=== PATIENT | male | born 1930 | race Caucasian/White ===

== ENCOUNTER 2019-06-26 17:29 | Outpatient (CLI) | payer MEDICARE, OTHER | END 2019-06-26 17:30 | disposition critical access hospital (66) | LOC: EMS 17:29 | PROVIDERS: ATTEND Surgery | DX: T63.461A Toxic effect of venom of wasps, accidental (unintentional), initial encounter (principal); R68.89 Other general symptoms and signs | CPT/HCPCS: A0425; A0427 ==

== ENCOUNTER 2019-06-26 18:09 | Emergency (ER) | payer MEDICARE, OTHER ==
--- NOTE | 2019-06-26 18:16 | ED Physician Documentation ---
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 He was stung at around 1600 by what he thinks is a yellow jacket on His right hand, he had a small amount of localized swelling over his ring finger, and over the next hour he began developing some slight feeling of pressure in his head. No confusion, vision change. He denies any difficulty breathing, denies any rash, no chest pain. He states that he has had an anaphylactic reaction once before to honeybee, but never to yellowjacket. This does not feel like his past anaphylactic reaction to him. He otherwise feels well. He received 50 mg of Benadryl in route by EMS. Review of Systems Constitutional: denies: Fever Eyes: denies: Loss of vision Cardiac: denies: Chest pain / pressure Respiratory: denies: Dyspnea GI: denies: Abdominal Pain, Nausea, Vomiting Skin: reports: Bite / sting Neurologic: denies: Generalized weakness Immunocompromised: denies: Immunocompromised PD PAST MEDICAL HISTORY - Present Medications Home Medications: Ambulatory Orders Medication Instructions Recorded Confirmed Lisinopril 06/26/19 - Allergies Allergies/Adverse Reactions: Allergies Allergy/AdvReac Type Severity Reaction Status Date / Time No Known Drug Allergies Allergy Verified 06/26/19 18:32 PD ED PE NORMAL - Vitals Vital signs reviewed: Yes - General General: Alert and oriented X 3, No acute distress - HEENT HEENT: PERRL - Neck Neck: Supple, no meningeal sign - Cardiac Cardiac: RRR - Respiratory Respiratory: No respiratory distress, Clear bilaterally - Abdomen Abdomen: Soft, Non tender, Non distended - Derm Derm: Warm and dry, No rash - Extremities Extremities: No deformity - Neuro Neuro: Alert and oriented X 3 - Psych Psych: Normal mood, Normal affect Results - Vitals Vitals: Vital Signs - 24 hr 06/26/19 18:23 Temperature 36.1 C L Heart Rate 70 Respiratory 16 Rate Blood Pressure 187/70 H O2 Saturation 98 Oxygen O2 Source Room air PD MEDICAL DECISION MAKING - ED course Complexity details: considered differential (Local reaction, allergic reaction, anaphylaxis, tension headache, migraine) ED course: Patient presents 2 hours after receiving a yellowjacket sting to his right fourth finger, he does have some localized swelling in this region, he has no signs of anaphylaxis. He states that he has some mild headache/head pressure, but no respiratory symptoms, no rash, no nausea or vomiting. He is very well- appearing, his vital signs are unremarkable. He was observed in the emergency department for over an hour (he is now 3.5 hours after the sting), and he developed no further symptoms, he states that he feels well, his headache/head pressure faded away, and he continues to have no respiratory symptoms whatsoever. I discussed with him that he appears to have a local reaction to the yellowjacket sting, But that if he develops any symptoms such as a diffuse rash, nausea, abdominal pain,Difficulty breathing, or any other concerning symptoms he should call 911 or return to emergency department immediately. He does have an EpiPen at home. He also can take some Benadryl tonight for his localized reaction. Return precautions were discussed in depth and he was discharged home in the care of his family. Departure - Departure Disposition: 01 Home, Self Care Clinical Impression: Insect sting Qualifiers: Encounter type: initial encounter Injury intent: accidental or unintentional Qualified Code(s): T63.481A - Toxic effect of venom of other arthropod, accidental (unintentional), initial encounter Condition: Good Instructions: ED Bite Sting Insect Local Allergic React Follow-Up: Your,PCP [Other] Comments: You were seen today for a sting of a yellowjacket on your finger, at this time there seems to be a reaction to the venom in the finger, but I do not see signs of anaphylaxis. If you develop any shortness of breath, chest pain, rash over your body, or vomiting please return to emergency department immediately or call 911. Otherwise you may put some ice on the finger, and take Benadryl for the swelling and discomfort.
[2019-06-26 19:22] VITALS: BP 152/59
== END 2019-06-26 19:23 | disposition home or self-care (01) ==
LOC: ED 18:09
DX: T63.461A Toxic effect of venom of wasps, accidental (unintentional), initial encounter (principal); R68.89 Other general symptoms and signs; R60.0 Localized edema
CPT/HCPCS: 99282; 99283